=== PATIENT | female | born 1950 | race Caucasian/White ===

== ENCOUNTER 2016-10-12 10:07 | Emergency (ER) | payer OTHER ==
[~2016-10-12] VITALS: Ht 160 cm; Wt 72.6 kg
[~2016-10-12 10:07] MED LIST: AMANTADINE100 M1 PO; AMLODIPINE BESY10 M1 PO; ASPIRIN EC81 M1 PO; DULOXETINE HCL60 MG PO; FENOFIBRIC ACI135 M1 PO; FIBER CHOICE1.5 GM PO; FISH OIL 1,2001 EACH PO; FUROSEMIDE40 M1 PO; GABAPENTIN300 M2 PO; JANUVIA100 M1 PO; LISINOPRIL40 M1 PO; METFORMIN HCL1000 M1 PO; METOPROLOL TART25 M1 PO; PIOGLITAZONE HC30 M1 PO; POTASSIUM99 M1 PO; RANITIDINE HCL150 MG PO; REBIF 44 M44 MCG/0.5 SC; VITAMIN B-121000 MC3 PO; VITAMIN D2000 UNIT PO; ZETIA10 M1 PO
--- NOTE | 2016-10-12 10:31 | ED AMS/SEIZURE/WEAK/DIZZY ---
History of Present Illness General Chief Complaint: Dizziness Stated Complaint: SIB DIZZINESS,R LEG CRAMPS Source: patient, old records Exam Limitations: no limitations Vital Signs & Intake/Output Vital Signs & Intake/Output Vital Signs Date Time Temp Pulse Resp B/P B/P Pulse O2 O2 Flow FiO2 Mean Ox Delivery Rate 10/12 1302 96.3 63 18 171/85 99 Room Air ED Intake and Output 10/13 0000 10/12 1200 Intake Total 0 Output Total Balance 0 Intake, Oral 0 Patient 160 lb Weight Weight Reported by Patient Measurement Method Allergies Coded Allergies: atorvastatin (UNKNOWN 01/02/16) cortisone (UNKNOWN 01/02/16) rosuvastatin (UNKNOWN 01/02/16) scallops (UNKNOWN 01/02/16) Uncoded Allergies: "DO NOT USE LEFT ARM FOR ANY PROCEDURE" (03/23/11) Reconcile Medications Amantadine HCl (Amantadine) 100 MG CAPSULE 1 CAP PO BID STIMULANT (Reported) Amlodipine Besylate 10 MG TABLET 0.5 TAB PO DAILY BP (Reported) Aspirin (Ecotrin*) 81 MG TABLET.DR 1 TAB PO DAILY HEART/BLOOD (Reported) Reason to Stop at ADM: ANEMIA, POSSIBLE GI BLEED Cholecalciferol (Vitamin D3) (Vitamin D) 2,000 UNIT CAPSULE 1 CAP PO DAILY SUPPLEMENT (Reported) Cyanocobalamin (Vitamin B-12) 1,000 MCG TABLET 3 TAB PO DAILY SUPPLEMENT ( Reported) Duloxetine HCl 60 MG CAPSULE.DR 1 CAP PO DAILY DEPRESSION (Reported) Ezetimibe (Zetia) 10 MG TABLET 1 TAB PO DAILY CHOLESTEROL (Reported) Fenofibric Acid (Choline) (Fenofibric Acid) 135 MG CAPSULE.DR 1 CAP PO DAILY TRIGLYCERIDES/CHOLESTEROL (Reported) Fish Oil/Dha/Epa (Fish Oil 1,200 MG Fish Oil) 1 EACH CAPSULE 1 CAP PO BID SUPPLEMENT (Reported) Furosemide 40 MG TABLET 0.5 TAB PO DAILY DIURETIC (Reported) Gabapentin 300 MG CAPSULE 2 CAP PO BID NERVE PAIN (Reported) Interferon Beta-1a/Albumin (Rebif 44 Mcg/0.5 Ml Syringe) 44 MCG/0.5 ML SYRINGE 44 MCG SC Tuesday MS (Reported) Reason to Stop at ADM: USES Tue, NT NEEDED Inulin (Fiber Choice) (Unknown Strength) TAB.CHEW (Unknown Dose) PO DAILY SUPPLEMENT (Reported) Reason to Stop at ADM: NOT NEEDED Lisinopril 40 MG TABLET 1 TAB PO DAILY BP (Reported) Magnesium Oxide 400 MG TABLET 1 TAB PO BID MUSCLE CRAMPS Metformin HCl 1,000 MG TABLET 1 TAB PO BID DIABETES (Reported) Reason to Stop at ADM: ISS Metoprolol Tartrate 25 MG TABLET 1 TAB PO BID HEART/BP (Reported) Pioglitazone HCl 30 MG TABLET 1 TAB PO DAILY DIABETES (Reported) Reason to Stop at ADM: ISS Potassium Gluconate (Potassium) (Unknown Strength) TABLET 595 MG PO DAILY SUPPLEMENT (Reported) Reason to Stop at ADM: NOT NEEDED Ranitidine (Ranitidine HCl) 150 MG TABLET 1 TAB PO BID GI (Reported) Sitagliptin Phosphate (Januvia) 100 MG TABLET 1 TAB PO DAILY DIABETES ( Reported) Reason to Stop at ADM: ISS Triage Note: PT C/O DIZZINESS, BILATERAL LEG WEAKNESS, LEG CRAMPS ESPECIALLY IN CALFS SINCE TUESDAY. PT STATES THE CRAMPING ISN'T EVERYDAY. Triage Nurses Notes Reviewed? yes Onset: Abrupt Duration: day(s): (2) Timing: recent history Injury Environment: home Severity: mild, moderate No Modifying Factors: none Associated Symptoms: LEG CRAMPS AT NIGHT HPI: 66 year old female with history of HTN, high cholesterol, vein closures who presents to the ER for chief complaint of dizziness x 2 days and persistent leg cramping. The patient states she has had cramping over several months and can't get any answers from her doctors. They initially thought it was secondary to the stylet was on imaging should his area. She states that she drinks a lot of water. She tried tonic water but couldn't get it down. Patient also states that she has had dizziness for the past 2 days and feels lightheaded. Last year she was anemic and went to endoscopy colonoscopy and pelvis. She was determined not to have any acute GI source of bleeding and was transfused. Patient is frustrated because Past History Travel History Traveled to [place] past 21 day No Medical History Any Pertinent Medical History? 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 No Review of Systems Review of Systems Constitutional: Denies: chills, fever. EENTM: Reports: no symptoms. Respiratory: Denies: cough, short of breath. Cardiovascular: Denies: chest pain, palpitations. GI: Reports: no symptoms. Genitourinary: Reports: no symptoms. Musculoskeletal: Reports: see HPI, muscle pain. Skin: Reports: no symptoms. Neurological/Psychological: Reports: see HPI (DIZZINESS), anxiety. Hematologic/Endocrine: Denies: bruising, bleeding, polyuria, polydipsia. Immunologic/Allergic: Denies: splenectomy. All Other Systems: Reviewed and Negative Physical Exam Physical Exam General Appearance: well developed/nourished, alert, awake, comfortable Head: atraumatic, normal appearance Eyes: Bilateral: normal appearance, PERRL, EOMI. Ears, Nose, Throat: normal pharynx, hearing grossly normal Neck: normal inspection, supple, full range of motion Respiratory: normal breath sounds, chest non-tender, no respiratory distress Cardiovascular: regular rate/rhythm Peripheral Pulses: 2+ radial (R), 2+ radial (L) Gastrointestinal: soft, non-tender Extremities: normal range of motion, RIGHT LEG SWELLING, NONHEALING ANTERIOR PORTILLO ULCER Neurologic/Psych: no motor/sensory deficits, awake, alert, oriented x 3 Skin: intact, normal color, warm/dry Core Measures ACS in differential dx? No CVA/TIA Diagnosis: No Severe Sepsis Present: No Septic Shock Present: No Progress Differential Diagnosis: anemia, benign positional vertigo, CVA/stroke, dehydration, ELECTRO-DISTURBANCE, MEDICATION SIDE EFFECT, dvt, ANEMIA, DEHYDRATION, TOBACCO ABUSE Plan of Care: Laboratory Tests 10/12/16 1218: Urine Color YEL, Urine Clarity CLEAR, Urine pH 6.5, Ur Specific Morrill 1.015, Urine Protein NEG, Urine Ketones NEG, Urine Nitrite NEG, Urine Bilirubin NEG, Urine Urobilinogen 0.2, Ur Leukocyte Esterase NEG, Ur Microscopic EXAM NOT REQUIRED, Urine Hemoglobin NEG, Urine Glucose 250 H SODIUM 130. PATIETN INFORMED, WILL INCREASE ORAL FLUID INTAKE. U/S PENDING. 1 PM SMOKE CESSATION COUNSELLING X 3 MINUTES. WILL INCREASE ELECTROLYTE INTAKE AND FOLLOW UP WITH PCP IN OFFICE. PATIENT WILL FOLLOW UP WITH SHANNON ALANIZ REGARDING YOUR SODIUM IN A FEW WEEKS. (LAUREN BOYER,PRASHANT) Diagnostic Imaging: Viewed by Me: Ultrasound. Discussed w/RAD: Ultrasound. Radiology Impression: PATIENT: ANA RODRIGUES PRESENT AGE: 66 PATIENT ACCOUNT NO: [id number] : 48 LOCATION: [facility] ORDERING PHYSICIAN: PRASHANT AGUILAR MD SERVICE DATE: 10/12/16 EXAM TYPE: US - US- UNILATERAL VENOUS DOPPLER EXAMINATION: US TRIPLEX LOWER EXTREMITY, RIGHT CLINICAL INFORMATION: 66-year-old female with right leg pain and swelling. COMPARISON: None TECHNIQUE: Color-flow triplex imaging with spectral analysis and compression Doppler were performed on the lower extremity. FINDINGS: Respiratory variation, normal compression and augmented flow are noted throughout the left lower extremity. The visualized common femoral vein, superficial femoral vein, profunda femoral vein, popliteal vein and midcalf peroneal and posterior tibial venous segments show no evidence of deep venous thrombosis. There is no Ivey's cyst. IMPRESSION: Normal triplex scan without evidence of deep venous thrombosis involving the lower extremity. DICTATED BY: LOUANN MCQUENE DO DATE/TIME DICTATED:10/12/161230 [employer] BLASTING:[place] DATE/TIME TRANSCRIBED:10/12/161230 CONFIDENTIAL, DO NOT COPY WITHOUT APPROPRIATE AUTHORIZATION. <Electronically signed in Other Vendor System> SIGNED BY: LOUANN MCQUEEN DO 10/12/16 1235 Initial ED EKG: NSR Departure Departure Time of Disposition: 1254 Disposition: HOME OR SELF CARE Condition: Stable Clinical Impression Primary Impression: Dizziness Secondary Impressions: Anemia, Hyponatremia Referrals: JESSICA ALANIZ APRN (PCP/Family) Additional Instructions: INCREASE YOUR FLUID AND ELECTROLYTE INTAKE. FOLLOW UP WITH YOUR DOCTOR IN THE OFFICE. RETURN NEEDED. Departure Forms: Customer Survey General Discharge Information Prescriptions: Current Visit Scripts Magnesium Oxide 1 TAB PO BID #28 TAB Prescriptions: Current Visit Scripts Magnesium Oxide 1 TAB PO BID #28 TAB
[2016-10-12 10:52] LABS: ABSOLUTE BASOPHIL COUNT 0 /CUMM (0.0-0.2); ABSOLUTE EOSINOPHIL COUNT 0.2 /CUMM (0.0-0.7); ABSOLUTE LYMPH COUNT 1.2 /CUMM (1.2-3.4); ABSOLUTE MONOCYTE COUNT 0.4 /CUMM (0.10-0.60); BASOPHIL % 0.6 % (0.0-2.0); EOSINOPHIL % 3.6 % (0-5); GRANULOCYTE % 62.6 % (42.2-75.2); HEMATOCRIT 30.4 % (37-47); MEAN CORPUSCULAR HGB 27.7 PG (27.0-31.0); MEAN CORPUSCULAR HGB CONC 33.5 G/DL (33.0-37.0); MEAN CORPUSCULAR VOLUME 82.8 FL (81.0-99.0); MEAN PLATELET VOLUME 7.5 FL (7.4-10.4); PLATELET COUNT 357 /CUMM (130-400); RBC DISTRIBUTION WIDTH 16.5 % (11.5-14.5); RED BLOOD CELL CT 3.67 /CUMM (4.20-5.40); WHITE BLOOD CELL COUNT 4.9 /CUMM (4.8-10.8)
--- NOTE | 2016-10-12 12:35 | ULTRASOUND REPORT ---
EXAMINATION: US TRIPLEX LOWER EXTREMITY, RIGHT CLINICAL INFORMATION: 66-year-old female with right leg pain and swelling. COMPARISON: None TECHNIQUE: Color-flow triplex imaging with spectral analysis and compression Doppler were performed on the lower extremity. FINDINGS: Respiratory variation, normal compression and augmented flow are noted throughout the left lower extremity. The visualized common femoral vein, superficial femoral vein, profunda femoral vein, popliteal vein and midcalf peroneal and posterior tibial venous segments show no evidence of deep venous thrombosis. There is no Ivey's cyst. IMPRESSION: Normal triplex scan without evidence of deep venous thrombosis involving the lower extremity.
[2016-10-12] MEDS ORDERED: MAGNESIUM OXID400 M1 PO (13:00)
[2016-10-12 13:02] VITALS: BP 171/85
== END 2016-10-12 13:05 ==
LOC: ERH 10:07
PROVIDERS: Emergency Medicine
DX: R42 Dizziness and giddiness (principal); D64.9 Anemia, unspecified; E87.1 Hypo-osmolality and hyponatremia; F17.210 Nicotine dependence, cigarettes, uncomplicated
CPT/HCPCS: 81003; 93005; 93010

== ENCOUNTER 2017-05-20 19:43 | Observation (INO) | payer OTHER ==
[~2017-05-20] VITALS: Ht 162.6 cm; Wt 52.6 kg
[~2017-05-20 19:43] MED LIST changes: +ACYCLOVIR800 M1 PO; +ALBUTEROL2.5 MG/0.5 INH; +ALDACTONE50 M1; +CARVEDILOL25 M1; +COMPAZINE10 M1 PO; +HYDRALAZINE HCL10 M1; +LASIX20 M1 PO; +LOVENOX100 MG/1 M SC; +LOVENOX40 MG/0.1; +MAGNESIUM OXID400 M1 PO; +OXYCODONE HCL5 M1 PO; +POTASSIUM CHLO20 ME2 PO; +PREDNISONE10 M2 PO; +ROBITUSSIN COU237 M1; +SODIUM CHLORIDE1 G2 PO; +STOOL SOFTENER100 M3 PO; +TRILIPIX135 M1; +TRILIPIX135 M1 PO; +ZOFRAN ODT4 M1 SL
--- NOTE | 2017-05-20 20:07 | ED AMS/SEIZURE/WEAK/DIZZY ---
History of Present Illness General Chief Complaint: Dyspnea (COPD, CHF, Other) Stated Complaint: DIFF BREATHING, N/V Source: patient, FIANCE Exam Limitations: poor historian, WEAKNESS Vital Signs & Intake/Output Vital Signs & Intake/Output Vital Signs Date Time Temp Pulse Resp B/P B/P Pulse O2 O2 Flow FiO2 Mean Ox Delivery Rate 05/21 0021 97.5 94 18 153/70 100 Nasal 2.0L Cannula 05/20 2223 96.9 99 22 169/78 98 Nasal 2.0L Cannula 05/20 2106 99 Nasal 2.0L Cannula 05/20 2056 97.1 90 20 141/76 98 Nasal 2.0L Cannula 05/20 2013 Nasal 2.0L Cannula 05/20 1950 96.8 104 20 170/81 99 Nasal 2.0L Cannula ED Intake and Output 05/21 0000 05/20 1200 Intake Total Output Total Balance Patient 125 lb Weight Allergies Coded Allergies: atorvastatin (LEG CRAMPS 05/20/17) cortisone (SHOTS CAUSED BODY SWELLING AFTER 2 WEEKS 05/20/17) rosuvastatin (LEG CRAMPS 05/20/17) scallops (MOUTH SWELLS 05/20/17) Uncoded Allergies: "DO NOT USE LEFT ARM FOR ANY PROCEDURE" (03/23/11) Reconcile Medications Acetaminophen (Unknown Strength) TABLET (Unknown Dose) PO AD 1 HR PRIOR TO REBIF INJ (Reported) Albuterol Sulfate 2.5 MG/0.5 ML VIAL.NEB 3 ML INH Q6 PRN SHORTNESS OF BREATH (Reported) Amantadine HCl (Amantadine) 100 MG CAPSULE 1 CAP PO BID STIMULANT (Reported) Amlodipine Besylate 10 MG TABLET 0.5 TAB PO DAILY BP (Reported) Aspirin (Ecotrin*) 81 MG TABLET.DR 1 TAB PO DAILY HEART/BLOOD (Reported) Cholecalciferol (Vitamin D3) (Vitamin D) 2,000 UNIT TABLET 1 TAB PO DAILY SUPPLEMENT (Reported) Cyanocobalamin (Vitamin B-12) 1,000 MCG TABLET 3 TAB PO DAILY SUPPLEMENT ( Reported) Docusate Sodium (Stool Softener) 100 MG CAPSULE 1 CAP PO DAILY PRN CONSTIPATION . Duloxetine HCl 60 MG CAPSULE.DR 1 CAP PO DAILY DEPRESSION (Reported) Enoxaparin Sodium (Lovenox) 100 MG/ML SYRINGE 100 MG SC DAILY Rt IJ thrombosis (Reported) PLEASE FOLLOW UP WITH HEME/ONCOLOGIST ABOUT RESTARTING THIS MEDICATION Ezetimibe (Zetia) 10 MG TABLET 1 TAB PO DAILY CHOLESTEROL (Reported) Fenofibric Acid (Trilipix) 135 MG CAPSULE.DR 1 CAP PO DAILY CHOLESTEROL/ TRIGLYCERIDES (Reported) Furosemide 40 MG TABLET 1 TAB PO DAILY DIURETIC (Reported) Gabapentin 300 MG CAPSULE 1 CAP PO 4XDAILY NERVE PAIN (Reported) Guaifenesin/Dextromethorphan (Robitussin Cough-Chest Dm Liq) 100 MG-5 MG/5 ML LIQUID COUGH (Reported) Interferon Beta-1a/Albumin (Rebif 44 Mcg/0.5 Ml Syringe) 44 MCG/0.5 ML SYRINGE 44 MCG SC Tuesday MS (Reported) Reason to Stop at ADM: USES Tue, NT NEEDED Lisinopril 40 MG TABLET 1 TAB PO DAILY BP (Reported) Magnesium Oxide 400 MG TABLET 1 TAB PO BID SUPPLEMENT . Metformin HCl 1,000 MG TABLET 1 TAB PO BID DIABETES (Reported) Reason to Stop at ADM: ISS Metoprolol Tartrate 25 MG TABLET 1 TAB PO BID HEART/BP (Reported) [place]-3 Fatty Acids/Fish Oil (Fish Oil 1,200 MG Softgel) 360 MG-1,200 MG CAPSULE 1 CAP PO TID SUPPLEMENT (Reported) Ondansetron (Zofran Odt) 4 MG TAB.RAPDIS 1 TAB SL TID PRN NAUSEA Pioglitazone HCl 30 MG TABLET 1 TAB PO DAILY DIABETES (Reported) Reason to Stop at ADM: ISS Polycarbophil (Fiber) (Unknown Strength) TABLET (Unknown Dose) PO DAILY SUPPLEMENT (Reported) Potassium Chloride 20 MEQ TAB.ER.PRT 1 TAB PO BID LOW POTASSIUM Potassium Gluconate (Potassium) 595 MG (99 MG) TABLET 1 TAB PO DAILY SUPPLEMENT (Reported) Prochlorperazine Maleate (Compazine) 10 MG TABLET 1 TAB PO DAILY PRN NAUSEA ( Reported) Ranitidine (Ranitidine HCl) 150 MG TABLET 1 TAB PO BID GI (Reported) Sitagliptin Phosphate (Januvia) 100 MG TABLET 1 TAB PO DAILY DIABETES ( Reported) Reason to Stop at ADM: ISS Sodium Chloride 1 GRAM TABLET 1 TAB PO BID Hyponatremia (Reported) Triage Note: 66 YEAR OLD FEMALE FROM HOME C/O N/V. REPORTS DIFFICULTY BREATHING STARTING THIS AFTERNOON AND GENERALIZED WEAKNESS. PT ARRIVES TO ED ALERT AND ORIENTED X3, CLEAR SPEECH. REPORTS HISTORY OF LUNG CANCER AND DIABETES [facility] [address] LAU AT BEDSIDE FOR EVAL. Triage Nurses Notes Reviewed? yes HPI: Patient presents for evaluation of severe constant and worsening generalized weakness that began subacutely this afternoon sitting on the couch at home. The patient is currently being treated for lung cancer with chemotherapy and radiation (last treatments were earlier this week). He states she is also experiencing a chest heaviness and nausea and vomiting that began this afternoon. She states she has had prior similar episodes secondary to dehydration. She states she has maintained a normal PO2 intake consisting primarily of insurers and soup. She denies any associated fever, cold symptoms, diarrhea, dysuria or suspicious meals. She is experiencing a diffuse abdominal pain and tenderness as well. Past History Travel History Traveled to [place] past 21 day No Medical History Any Pertinent Medical History? 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 No Review of Systems Review of Systems Constitutional: Reports: weakness. EENTM: Reports: no symptoms. Respiratory: Reports: see HPI. Cardiovascular: Reports: see HPI. GI: Reports: see HPI. Genitourinary: Reports: no symptoms. Musculoskeletal: Reports: no symptoms. Skin: Reports: no symptoms. Neurological/Psychological: Reports: no symptoms. Hematologic/Endocrine: Reports: no symptoms. Immunologic/Allergic: Reports: no symptoms. All Other Systems: Reviewed and Negative Physical Exam Physical Exam General Appearance: SEE BELOW Comments: Gen.: Well-nourished, well-developed, no acute respiratory distress. Appears quite weak and tired. Head: Normocephalic, atraumatic. Eyes: Normal inspection bilaterally Ears: Normal inspection bilaterally Nose: Normal inspection Throat/mouth : Tacky mucosa Neck: Supple, full range of motion, no goiter Heart: Regular rate and rhythm, no murmurs rubs or gallops Lungs: Diffuse wheezes and rhonchi Chest: Nontender Back: Normal range of motion Abdomen: Soft, diffusely tender with brief voluntary guarding but no rebound, nondistended, normal bowel sounds Extremities: Normal range of motion grossly, equal radial pulses, no cyanosis clubbing or edema Neurologic: Cranial nerves grossly intact, speech is clear Skin: warm and dry Psychiatric: Calm, cooperative, no apparent delusions or hallucinations Core Measures ACS in differential dx? No CVA/TIA Diagnosis No Sepsis Present: No Sepsis Focused Exam Completed? No Progress Differential Diagnosis: anemia, dehydration, hypoglycemia, hypoxia, pneumonia, DEHYDRATION, copd/EMPHYSEMA Plan of Care: Orders Procedure Date/time Status Regular Diet 05/[address] in observation 05/21 0054 Active Patient Data 05/21 004 Active Misc Message 05/20 235 Active ED Holding Orders 05/20 235 Active Vital Signs 05/20 2351 Active Code Status 05/20 2351 Active Add-on Test (ER Only) 05/20 2218 Active CULTURE,STOOL 05/20 2200 Active C.DIFFICILE 05/20 2200 Active Telemetry/Receiving Worker 05/20 2006 Active TROPONIN LEVEL 05/20 2006 Complete MAGNESIUM 05/20 2006 Complete D-DIMER 05/20 2006 Complete CBC WITHOUT DIFFERENTIAL 05/20 2006 Complete B-TYPE NATRIURETIC PEP (BNP) 05/20 2006 Complete BASIC METABOLIC PANEL 05/20 2006 Complete EKG 05/20 1957 Active Current Medications Sig/Yolanda Start time Last Medication Dose Stop Time Status Admin Ondansetron HCl 4 MG ONCE ONE 05/21 0045 UNVr 05/21 (Zofran) 05/21 0046 0045 Sodium Chloride 1,000 ML ONCE ONE 05/205 AC 05/20 (Normal Saline 0.9%) 05/21 0354 2129 Laboratory Tests 05/20/17 2030: D-Dimer High Sensitivty 1113 H 05/20/17 2020: Anion Gap 8, Estimated GFR > 60, BUN/Creatinine Ratio 35.0 H, Glucose 278 H, Calcium 8.1 L, Magnesium 1.0 L, Troponin I 0.08, [id number] Pept 4760 H, CBC w Diff MAN DIFF ORDERED, RBC 3.81 L, MCV 88.8, MCH 29.9, RDW 18.9 H, MPV 8.5, Gran % 83.0 H, Lymphocytes % 4.3 L, Monocytes % 12.6 H, Eosinophils % 0.1, Basophils % 0, Absolute Granulocytes 16.4 H, Segmented Neutrophils 77 H , Band Neutrophils 8 H, Absolute Lymphocytes 0.8 L, Lymphocytes 4 L, Monocytes 8, Absolute Monocytes 2.5 H, Absolute Eosinophils 0, Absolute Basophils 0, Metamyelocytes 3 H, Nucleated RBCs 1 H, Platelet Estimate DECREASED, Polychromasia 1+, Anisocytosis 1+, Microcytic Cells 1+, PUBS MCHC 33.7 Microbiology 05/20 2218 STOOL: Clostridium difficile Toxin A & B - RECD 05/20 2218 STOOL: Stool Culture - RECD Diagnostic Imaging: Viewed by Me: Radiology Read. Discussed w/RAD: Radiology Read, CT Scan. Radiology Impression: PATIENT: ANA RODRIGUES PRESENT AGE: 66 PATIENT ACCOUNT NO: [id number] : 48 LOCATION: [facility] ORDERING PHYSICIAN: Otis Lau MD SERVICE DATE: 05/20/17-2217 EXAM TYPE: CAT - CTA CHEST-PULMONARY EMBOLISM EXAMINATION: CT PULMONARY EMBOLISM STUDY CLINICAL INFORMATION: Elevated d-dimer. Lung cancer. COMPARISON: 05/16/2017. TECHNIQUE: Contiguous helical images of the chest were obtained following the administration of IV contrast. Multiplanar reconstructions were performed. MIPS were obtained and reviewed. DLP: 185 mGy-cm. CONTRAST: 63 mL of Optiray 350 were administered without incident. FINDINGS: The heart is of normal size. There is no pericardial effusion. Again identified is a tracheal stent extending from just proximal to the jonelle into the left mainstem bronchus. The great vessels are unremarkable. Specifically, there is no pulmonary arterial filling defect. There is no CT evidence for pulmonary embolism. Again identified is soft tissue density about the jonelle and subcarinal region. This extends to the right hilar region with demonstrable loss of caliber to the right mainstem bronchus and proximal upper and lower lobe bronchi. There is increasing groundglass opacification identified within the superior segment right lower lobe and infrahilar location. There are no chest wall masses. Review of lung windows again demonstrates a right pleural effusion, slightly decreased in size from prior exam, considered to be small in quantity. A right pleural catheter is in unchanged position. There is stable appearance of an oblong nodular density within the right upper lobe on image 69/459 measuring approximately 8 x 3 mm. Also within the right upper lobe on image 81/459, there is a 3 mm nodule, unchanged from prior exam. Again identified are several subtle nodular densities bilaterally. There is stable mild bilateral bronchial wall thickening. Again identified are mild manifestations of emphysema. Limited evaluation of the upper abdomen demonstrates that the liver is of normal size and attenuation without focal lesions. Normal adrenal glands are identified. IMPRESSION: No CT evidence for a pulmonary embolism. Slight interval decrease in size of right pleural effusion with pleural catheter in place. Stable positioning of left mainstem bronchus stent. Persistent soft tissue prominence about the carinal and subcarinal regions with resultant narrowing to the caliber of the right mainstem bronchus and proximal upper and lower lobe bronchi. Increasing superior segment right lower lobe perihilar groundglass opacification and bronchial wall thickening. Mild manifestations of centrilobular emphysema. DICTATED BY: Diego Clayton MD DATE/TIME DICTATED:05/20/172326 BLUEPRINTER:KENIA DATE/ TIME TRANSCRIBED:05/20/172326 CONFIDENTIAL, DO NOT COPY WITHOUT APPROPRIATE AUTHORIZATION. <Electronically signed in Other Vendor System> SIGNED BY: Diego Clayton MD 05/20/17 8452 CXR Impression: PATIENT: ANA RODRIGUES PRESENT AGE: 66 PATIENT ACCOUNT NO: [id number] : 48 LOCATION: [facility] ORDERING PHYSICIAN: Otis Lau MD SERVICE DATE: 05/20/17 EXAM TYPE: RAD - XRY-PORTABLE CHEST XRAY EXAMINATION: XR PORTABLE CHEST CLINICAL INFORMATION: Shortness of breath and chest heaviness. History of lung carcinoma treated with chemotherapy and radiation. COMPARISON: CXR from 05/12/2017 TECHNIQUE: Portable frontal view of the chest was obtained. FINDINGS: There is a stent of the left mainstem bronchus. Pleural drainage catheter is present within the right hemithorax. A small right pleural effusion has increased compared to 05/12/2017. No pneumothorax. There is a right chest wall medication port with central catheter terminating in the region of junction of the superior vena cava and right atrium. No pulmonary edema or consolidation. Cardiac silhouette is normal in size. Mild tortuosity of the atherosclerotic aorta. No acute skeletal findings. IMPRESSION: 1. No radiographic evidence of pneumonia. 2. Small right pleural effusion has increased in size compared to 05/12/2017. DICTATED BY: Mendez Moreno MD DATE/TIME DICTATED:05/20/172054 BLUEPRINTER:KENIA DATE/TIME TRANSCRIBED:05/20/172054 CONFIDENTIAL, DO NOT COPY WITHOUT APPROPRIATE AUTHORIZATION. <Electronically signed in Other Vendor System> SIGNED BY: Mendez Moreno MD 05/20/172101 Initial ED EKG: NSR, rate (81), PAC Prior EKG: unchanged Comments: 05/20/2017 10:11:04 PM I went into off daily and on her test results and found her sitting at the edge of the bed unable to get back into the bed after using the bedside commode. She had an episode of diarrhea. She looked weak and unsteady. For moment I thought she might keeled over onto the floor. Moments after being placed in bed she needed to have another loose bowel movement. Given her overall debilitated state and multiple coincident medical problems I don't feel she is capable of returning home at this time. 05/20/2017 10:19:38 PM patient's case discussed with Dr. VALENZUELA who is requesting a CTA to rule out the possibility of pulmonary embolism. I have pointed out to her that the patient had a CT of the chest on May 16 that showed no PE. However Dr. Valenzuela he is concerned about the elevated d-dimer. Departure Departure Disposition: STILL A PATIENT Condition: Stable Clinical Impression Primary Impression: Hyponatremia Secondary Impressions: Diarrhea Qualifiers: Diarrhea type: unspecified type Qualified Code: R19.7 - Diarrhea, unspecified Elevated brain natriuretic peptide (BNP) level Elevated d-dimer Generalized weakness Leukocytosis Qualifiers: Leukocytosis type: other Qualified Code: D72.828 - Other elevated white blood cell count Lung cancer Qualifiers: Laterality: unspecified laterality Lung location: unspecified part of lung Qualified Code: C34.90 - Malignant neoplasm of unspecified part of unspecified bronchus or lung Recurrent right pleural effusion Referrals: Ese Duncan APRN (PCP/Family) Departure Forms: Customer Survey General Discharge Information Admission Note Documentation of Exam: Documentation of any treatments & extenuating circumstances including Concerns Regarding Discharge (functional status, medication knowledge or non-compliance, living conditions, etc.) that warrant an admission rather than observation: Observation Note Spoke With: Vamsi Rust MD Patient In: Non-ED OBS Care Area Rationale for Observation: My rational for observation is as follows: I feel this patient is far too weak and debilitated to return home. I think she would be at great risk of falling and would likely be so debilitated has to be indicated poor compliance with outpatient treatment. I will be highly likely that she would return in worse clinical condition. She is suffering a multitude of medical conditions including hyponatremia and leukocytosis and diarrhea. She has been receiving chemotherapy and radiation therapy for her lung cancer. I feel that she is in an overall very debilitated state and cannot be treated safely as an outpatient for her current medical problems and symptoms. I feel she would be incapable of compliance with outpatient treatment and would return in worse clinical condition. I suspect that she would be unable to fulfill activities of daily living as well. I feel she requires hospitalization for treatment with IV fluids and further monitoring of her elevated BNP, white blood cell count and d- dimer. Hematology oncology consultation should also be considered given her history of lung cancer. This patient is also having episodes of diarrhea and GI consultation should be considered as well. Stool culture results should be followed and treated accordingly. In addition given the patient's pleural effusion pulmonology consultation to be considered. Although I don't feel the patient's relatively small pleural effusion is impacting substantially on her overall clinical condition, drainage of the pleural effusion should also be considered. . Critical Care Note Critical Care Note Critical Care Time: 30-74 min
[2017-05-20 20:27] LABS: ABSOLUTE BASOPHIL COUNT 0 /CUMM (0.0-0.2); ABSOLUTE EOSINOPHIL COUNT 0 /CUMM (0.0-0.7); ABSOLUTE GRANULOCYTE CT 16.4 /CUMM (1.4-6.5); ABSOLUTE LYMPH COUNT 0.8 /CUMM (1.2-3.4); ABSOLUTE MONOCYTE COUNT 2.5 /CUMM (0.10-0.60); BASOPHIL % 0 % (0.0-2.0); EOSINOPHIL % 0.1 % (0-5); HEMATOCRIT 33.9 % (37-47); MEAN CORPUSCULAR HGB 29.9 PG (27.0-31.0); MEAN CORPUSCULAR HGB CONC 33.7 G/DL (33.0-37.0); MEAN CORPUSCULAR VOLUME 88.8 FL (81.0-99.0); MEAN PLATELET VOLUME 8.5 FL (7.4-10.4); RBC DISTRIBUTION WIDTH 18.9 % (11.5-14.5); RED BLOOD CELL CT 3.81 /CUMM (4.20-5.40)
[2017-05-20 20:28] LABS: PLATELET COUNT 127 /CUMM (130-400); WHITE BLOOD CELL COUNT 19.8 /CUMM (4.8-10.8)
--- NOTE | 2017-05-20 21:02 | RADIOLOGY REPORT ---
EXAMINATION: XR PORTABLE CHEST CLINICAL INFORMATION: Shortness of breath and chest heaviness. History of lung carcinoma treated with chemotherapy and radiation. COMPARISON: CXR from 05/12/2017 TECHNIQUE: Portable frontal view of the chest was obtained. FINDINGS: There is a stent of the left mainstem bronchus. Pleural drainage catheter is present within the right hemithorax. A small right pleural effusion has increased compared to 05/12/2017. No pneumothorax. There is a right chest wall medication port with central catheter terminating in the region of junction of the superior vena cava and right atrium. No pulmonary edema or consolidation. Cardiac silhouette is normal in size. Mild tortuosity of the atherosclerotic aorta. No acute skeletal findings. IMPRESSION: 1. No radiographic evidence of pneumonia. 2. Small right pleural effusion has increased in size compared to 05/12/2017.
[2017-05-20] MEDS ORDERED: METOPROLOL TART25 M1 PO (21:12)
[2017-05-20] MEDS ORDERED: LASIX40 M1 PO (21:13)
[2017-05-20] MEDS ORDERED: ZETIA10 M1 PO (21:14)
[2017-05-20] MEDS ORDERED: TRILIPIX135 M1 PO (21:15)
[2017-05-20] MEDS ORDERED: GABAPENTIN300 M2 PO (21:16)
[2017-05-20] MEDS ORDERED: ASPIRIN EC81 M1 PO (21:18)
[2017-05-20] MEDS ORDERED: VITAMIN D2000 UNI1 PO (21:19)
[2017-05-20] MEDS ORDERED: ACETAMINOPHEN500 M4 PO (21:19)
[2017-05-20] MEDS ORDERED: POTASSIUM99 M1 PO (21:20)
[2017-05-20] MEDS ORDERED: FISH OIL 1,2001 EAC4 PO (21:20)
[2017-05-20] MEDS ORDERED: FIBER625 MG PO (21:21)
[2017-05-20] MEDS ORDERED: VITAMIN B-121000 MC3 PO (21:23)
--- NOTE | 2017-05-20 23:39 | CT SCAN REPORT ---
EXAMINATION: CT PULMONARY EMBOLISM STUDY CLINICAL INFORMATION: Elevated d-dimer. Lung cancer. COMPARISON: 05/16/2017. TECHNIQUE: Contiguous helical images of the chest were obtained following the administration of IV contrast. Multiplanar reconstructions were performed. MIPS were obtained and reviewed. DLP: 185 mGy-cm. CONTRAST: 63 mL of Optiray 350 were administered without incident. FINDINGS: The heart is of normal size. There is no pericardial effusion. Again identified is a tracheal stent extending from just proximal to the jonelle into the left mainstem bronchus. The great vessels are unremarkable. Specifically, there is no pulmonary arterial filling defect. There is no CT evidence for pulmonary embolism. Again identified is soft tissue density about the jonelle and subcarinal region. This extends to the right hilar region with demonstrable loss of caliber to the right mainstem bronchus and proximal upper and lower lobe bronchi. There is increasing groundglass opacification identified within the superior segment right lower lobe and infrahilar location. There are no chest wall masses. Review of lung windows again demonstrates a right pleural effusion, slightly decreased in size from prior exam, considered to be small in quantity. A right pleural catheter is in unchanged position. There is stable appearance of an oblong nodular density within the right upper lobe on image 69/459 measuring approximately 8 x 3 mm. Also within the right upper lobe on image 81/459, there is a 3 mm nodule, unchanged from prior exam. Again identified are several subtle nodular densities bilaterally. There is stable mild bilateral bronchial wall thickening. Again identified are mild manifestations of emphysema. Limited evaluation of the upper abdomen demonstrates that the liver is of normal size and attenuation without focal lesions. Normal adrenal glands are identified. IMPRESSION: No CT evidence for a pulmonary embolism. Slight interval decrease in size of right pleural effusion with pleural catheter in place. Stable positioning of left mainstem bronchus stent. Persistent soft tissue prominence about the carinal and subcarinal regions with resultant narrowing to the caliber of the right mainstem bronchus and proximal upper and lower lobe bronchi. Increasing superior segment right lower lobe perihilar groundglass opacification and bronchial wall thickening. Mild manifestations of centrilobular emphysema.
--- NOTE | 2017-05-21 00:56 | History & Physical ---
EdisonDa Silva 05/21/17 0056: General Information and HPI MD Statement: I have seen and personally examined ANA RODRIGUES and documented this H&P. The patient is a 66 year old F who presented with a patient stated chief complaint of generalized weakness, nausea and shortness of breath.[]. Source of Information: patient, old records, EMS Exam Limitations: no limitations History of Present Illness: 66 YO F with a PMH significant for HTN, hyperlipidemia, DM, multiple sclerosis, HFpEF, stroke, breast cancer, SIADH, right IJ thrombus with SVC syndrome on Lovenox and recently diagnosed stage IV small cell lung carcinoma being treated with chemoradiotherapy with cisplatin and etoposide (last chemotherapy was on ) admitted for interactible nausea, generalized weakness and shortness of breath. Patient was admitted to [facility] last time 05/09/2017 for electrolyte imbalance and weakness. Patient reported that after she had been discharged from hospital 2 days back she was feeling weak and having nausea. She reported that she had a appointment with his doctor. Her doctor recommended her to get a CT scan. Patient reported that she was feeling so weak that she collapsed and was not able to get the CT scan. Patient with constant suffering from nausea. Patient has poor oral intake and she is not able to drink or eat anything to nourish herself. Patient reported that she has clinical nursing assistant that helps her to take care of the catheter in the right side of the chest that was placed for the pleural effusion. She also getting clinical nursing assistant for the physiotherapy.Due to holiday weekends she has not been able to get physical therapy at home. According to patient yesterday she felt extremely weak that she could not ambulate and today she decided to come to the hospital. Patient also reported to have progressively worsening exertional dyspnea. Patient denied chest pain, palpitation, chills, fever, lightheadedness, sick contact, abdominal pain, cough, short of breath at rest and dysuria. ED course: Vitals: Temperature 96.8, pulse 106, respiratory rate 20, blood pressure 170/81, oxygen saturation 99% on 2 L of oxygen Labs: WBC count 19.8, hemoglobin 11.4, hematocrit 33.9, platelet count 127, sodium 122, potassium 3.7, BUN 14, creatinine 0.4, BUN/creatinine ration 35.0, glucose 278, calcium 8.1, magnesium 1.0, proBNP 4760, d-dimer 1113. Considering patient's high pretest probability according to Well's score in system CTA chest was done to rule out pulmonary embolism. CTA chest was negative for PE. Allergies/Medications Allergies: Coded Allergies: atorvastatin (LEG CRAMPS 05/20/17) cortisone (SHOTS CAUSED BODY SWELLING AFTER 2 WEEKS 05/20/17) rosuvastatin (LEG CRAMPS 05/20/17) scallops (MOUTH SWELLS 05/20/17) Uncoded Allergies: "DO NOT USE LEFT ARM FOR ANY PROCEDURE" (03/23/11) Home Med list Acetaminophen (Unknown Strength) TABLET (Unknown Dose) PO AD 1 HR PRIOR TO REBIF INJ (Reported) Albuterol Sulfate 2.5 MG/0.5 ML VIAL.NEB 3 ML INH Q6 PRN SHORTNESS OF BREATH (Reported) Amantadine HCl (Amantadine) 100 MG CAPSULE 1 CAP PO BID STIMULANT (Reported) Amlodipine Besylate 10 MG TABLET 0.5 TAB PO DAILY BP (Reported) Aspirin (Ecotrin*) 81 MG TABLET.DR 1 TAB PO DAILY HEART/BLOOD (Reported) Carvedilol 25 MG TABLET BLOOD PRESSURE (Reported) Cholecalciferol (Vitamin D3) (Vitamin D) 2,000 UNIT TABLET 1 TAB PO DAILY SUPPLEMENT (Reported) Cyanocobalamin (Vitamin B-12) 1,000 MCG TABLET 3 TAB PO DAILY SUPPLEMENT ( Reported) Docusate Sodium (Stool Softener) 100 MG CAPSULE 1 CAP PO DAILY PRN CONSTIPATION . Duloxetine HCl 60 MG CAPSULE.DR 1 CAP PO DAILY DEPRESSION (Reported) Enoxaparin Sodium (Lovenox) 100 MG/ML SYRINGE 100 MG SC DAILY Rt IJ thrombosis (Reported) PLEASE FOLLOW UP WITH HEME/ONCOLOGIST ABOUT RESTARTING THIS MEDICATION Ezetimibe (Zetia) 10 MG TABLET 1 TAB PO DAILY CHOLESTEROL (Reported) Fenofibric Acid (Trilipix) 135 MG CAPSULE.DR 1 CAP PO DAILY CHOLESTEROL/ TRIGLYCERIDES (Reported) Furosemide 40 MG TABLET 1 TAB PO DAILY DIURETIC (Reported) Gabapentin 300 MG CAPSULE 1 CAP PO 4XDAILY NERVE PAIN (Reported) Guaifenesin/Dextromethorphan (Robitussin Cough-Chest Dm Liq) 100 MG-5 MG/5 ML LIQUID COUGH (Reported) Interferon Beta-1a/Albumin (Rebif 44 Mcg/0.5 Ml Syringe) 44 MCG/0.5 ML SYRINGE 44 MCG SC Tuesday MS (Reported) Reason to Stop at ADM: USES Tue, NT NEEDED Lisinopril 40 MG TABLET 1 TAB PO DAILY BP (Reported) Magnesium Oxide 400 MG TABLET 1 TAB PO BID SUPPLEMENT . Metformin HCl 1,000 MG TABLET 1 TAB PO BID DIABETES (Reported) Reason to Stop at ADM: ISS Metoprolol Tartrate 25 MG TABLET 1 TAB PO BID HEART/BP (Reported) [place]-3 Fatty Acids/Fish Oil (Fish Oil 1,200 MG Softgel) 360 MG-1,200 MG CAPSULE 1 CAP PO TID SUPPLEMENT (Reported) Ondansetron (Zofran Odt) 4 MG TAB.RAPDIS 1 TAB SL TID PRN NAUSEA Pioglitazone HCl 30 MG TABLET 1 TAB PO DAILY DIABETES (Reported) Reason to Stop at ADM: ISS Polycarbophil (Fiber) (Unknown Strength) TABLET (Unknown Dose) PO DAILY SUPPLEMENT (Reported) Potassium Chloride 20 MEQ TAB.ER.PRT 1 TAB PO BID LOW POTASSIUM Potassium Gluconate (Potassium) 595 MG (99 MG) TABLET 1 TAB PO DAILY SUPPLEMENT (Reported) Prednisone 10 MG TABLET 1 TAB PO TAPER STEROID TAPER . Prochlorperazine Maleate (Compazine) 10 MG TABLET 1 TAB PO DAILY PRN NAUSEA ( Reported) Ranitidine (Ranitidine HCl) 150 MG TABLET 1 TAB PO BID GI (Reported) Sitagliptin Phosphate (Januvia) 100 MG TABLET 1 TAB PO DAILY DIABETES ( Reported) Reason to Stop at ADM: ISS Sodium Chloride 1 GRAM TABLET 1 TAB PO BID Hyponatremia (Reported) Past History Travel History Traveled to [place] past 21 day No Medical History Neurological: CVA (w/ expressive aphashia), multiple sclerosis, NO PROCEDURES TO LEFT ARM DUE TO ULNAR NERVE EENT: NONE Cardiovascular: diastolic CHF, hypertension, hyperlipidemia Respiratory: NONE Gastrointestinal: GI BLEED Hepatic: NONE Renal: NONE Musculoskeletal: NONE (due to bulging disc) Psychiatric: NONE Endocrine: diabetes Blood Disorders: NONE Cancer(s): 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 EENTM: Reports: no symptoms. Cardiovascular: Reports: no symptoms. Respiratory: Reports: short of breath. GI: Reports: nausea. Genitourinary: Reports: no symptoms. Musculoskeletal: Reports: no symptoms. Neurological/Psychological: Reports: no symptoms. Exam & Diagnostic Data Last 24 Hrs of Vital Signs/I&O Vital Signs Date Time Temp Pulse Resp B/P B/P Pulse O2 O2 Flow FiO2 Mean Ox Delivery Rate 05/21 0021 97.5 94 18 153/70 100 Nasal 2.0L Cannula 05/20 2223 96.9 99 22 169/78 98 Nasal 2.0L Cannula 05/20 2106 99 Nasal 2.0L Cannula 05/20 2056 97.1 90 20 141/76 98 Nasal 2.0L Cannula 05/20 2013 Nasal 2.0L Cannula 05/20 1950 96.8 104 20 170/81 99 Nasal 2.0L Cannula Intake & Output 05/21 0800 05/21 0000 05/20 1600 Intake Total Output Total Balance Patient 125 lb Weight Physical Exam General Appearance Alert, Oriented X3, Cooperative, No Acute Distress Skin Temp/Moisture Exam: Warm/Dry Sepsis Skin Exam (color): Normal for Ethnicity HEENT Atraumatic, PERRLA, EOMI Neck Supple Cardiovascular Normal S1, Normal S2 Lungs Decreased breath sounds on right side compare to left. Abdomen Soft, No Tenderness Neurological Normal Speech, Normal Tone, Sensation Intact Extremities No Edema Last 24 Hrs of Labs/Scott: Laboratory Tests 05/20/17 2030: D-Dimer High Sensitivty 1113 H 05/20/17 2020: Anion Gap 8, Estimated GFR > 60, BUN/Creatinine Ratio 35.0 H, Glucose 278 H, Calcium 8.1 L, Magnesium 1.0 L, Troponin I 0.08, Ihq-J-Qzcbcttnnth Pept 4760 H, CBC w Diff MAN DIFF ORDERED, RBC 3.81 L, MCV 88.8, MCH 29.9, RDW 18.9 H, MPV 8.5, Gran % 83.0 H, Lymphocytes % 4.3 L, Monocytes % 12.6 H, Eosinophils % 0.1, Basophils % 0, Absolute Granulocytes 16.4 H, Segmented Neutrophils 77 H , Band Neutrophils 8 H, Absolute Lymphocytes 0.8 L, Lymphocytes 4 L, Monocytes 8, Absolute Monocytes 2.5 H, Absolute Eosinophils 0, Absolute Basophils 0, Metamyelocytes 3 H, Nucleated RBCs 1 H, Platelet Estimate DECREASED, Polychromasia 1+, Anisocytosis 1+, Microcytic Cells 1+, PUBS MCHC 33.7 Microbiology 05/20 2218 STOOL: Clostridium difficile Toxin A & B - RECD 05/20 2218 STOOL: Stool Culture - RECD Assessment/Plan Assessment: 66 YO F with a PMH significant for HTN, hyperlipidemia, DM, multiple sclerosis, HFpEF, stroke, breast cancer, SIADH, right IJ thrombus with SVC syndrome on Lovenox and recently diagnosed stage IV small cell lung carcinoma being treated with chemoradiotherapy with cisplatin and etoposide (last chemotherapy was on ) admitted for chemotherapy-induced interactible nausea, generalized weakness and shortness of breath. Consists patient history of lung cancer status post chemoradiotherapy and nausea and vomiting with generalized weakness we'll keep the patient observation to watch for electrolyte imbalance and dehydration. Generalized weakness: -Probably due to multifactorial including electrolyte imbalance poor nutritional status, cancer and deconditioning. -We will get the nutrition consult. -We will correct electrolyte imbalance. -We will encourage the patient to increase oral intake. -Physiotherapy Hyponatremia: -Possibly due to hypovolemic hyponatremia considering patient's history of poor oral intake and nausea vomiting. Also including the history of SIADH, could be the factor of hyponatremia. -Slow IV hydration with normal saline. -BP after every 4 hours. -If the patient hyponatremia is dominantly due to dehydration it was improved. If not and its dominantly due to SIADH will keep the patient on fluid restriction. Hypertension: -We will continue home medication. Nausea and vomiting: -We will give patient Zofran after checking the QTC. -Gentle IV hydration. History of congestive heart failure: -We will continue aspirin, lisinopril, carvedilol and amlodipine. History of diabetes: -We'll hold then oral anti-glycemic agents. -Accu-Cheks -We will keep the patient on NovoLog insulin according to sliding scale. History of depression: -We will continue home medication. DVT prophylaxis: Mechanical onlay considering thrombocytopenia. CODE STATUS: Full code As Ranked By This Provider Problem List: 1. Generalized weakness 2. Hyponatremia 3. Nausea and vomiting Core Measures/Misc (02/13) Acute Coronary Syndrome ACS Diagnosis: No Congestive Heart Failure Congestive Heart Failure Diagnosis No Cerebrovascular Accident CVA/TIA Diagnosis: No VTE (View Protocol) VTE Risk Factors Cancer/chemo/othr therapy No Mechanical VTE Prophylaxis d/t N/A MechProphylax Ordered No VTE Pharm Prophylaxis d/t NA PharmProphylax ordered Sepsis (View protocol) Sepsis Present: Yodit Simmons 05/21/17 0156: Resident Review Statement Resident Statement: examined this patient, discussed with international first officer, agreed with international first officer, discussed with family, reviewed EMR data (avail), discussed with nursing , discussed with case mgmt, reviewed images, amended to note Other Findings: 66-year-old woman, poor historian, with past medical history significant for hypertension, hyperlipidemia, diabetes, MS, HFpEF, stroke, breast cancer, SIADH, right IJ thrombosis with SVC syndrome on Lovenox and recently diagnosed with extensive small cell lung carcinoma on chemoradiotherapy (W/cisplatin and etoposide, last round of chemo was aroun ). Afterward, patient developed an intractable nausea and vomiting. She was admitted to [facility] from 05/09-05/17 for severe electrolyte derangements, and weakness. Over the stretcher 48 hours outside the hospital, patient continues to suffer from constant nausea, intractable vomiting and hives. At her baseline she has a very poor oral intake and poor nutritional status. Due to holiday weekends she has not been able to get physical therapy at home. According to patient yesterday she felt extremely weak that she could not ambulate and today she decided to come to the hospital. Patient denies any new change in her health. She denies any fever, shaking chills, abdominal pain, diarrhea, cough, shortness of breath, chest pain, palpitation. Of note, patient has one episode of loose bowel movements in the emergency room. Review of system: Complains of severe generalized weakness; vital signs are stable; physical exam: General appearance: Cachectic and frail, moderate distress, persistent hive; HEET: Mucous membranes are dry, sclera pale; heart: S1, S2, no murmur; lung: Clear; site of the Pleurx catheter is appropriately dressed, no tenderness to touch, abdominis soft, no extremity swelling or skin change. Pertinent data Wells score: High D-dimer 1113 WBC 19.8; platelets 128, BUN 14, creatinine 0.4 BUN/creatinine ratio 35, magnesium 1 C diff toxin is pending CTA of the chest: No evidence of pulmonary embolism; Slight interval decrease in size of right pleural effusion with pleural catheter in place. List of active problems # leukocytosis without source of infection: Mostly due to steroids without any obvious source of infection. Watch of antibiotics. Follow micro results. # generalized weakness was possibly multifactorial (electrolyte derangements, poor nutritional status, cancer, deconditioning and muscle loss) # hyponatremia (SIADH and hypovolemic hyponatremia): Continue IV hydration with normal saline 1 back and repeat BEP in am; if the main culprit is SIADH IV hydration will worsen the situation, but if the acute insult is due to dehydration and hyponatremia will improve. # chronic conditions : Hypertension, hyperlipidemia, MS, heart failure with preserved ejection fraction, DM, steroid dependence Plan * Admit to general medical floor as an observation patient * EKG: check for QT prolongation * If QT is normal start IV Zofran Q 4 as needed * Replete magnesium * Replete potassium * Check phosphates * Continue IV hydration D5 and normal saline 75 mL per hour 1 back * Continue prednisone 50 mg by mouth daily (per taper instruction from discharge summary) * Continue lisinopril 40 mg by mouth daily * Continue carvedilol 25 mg by mouth daily * Continue amlodipine 5 mg daily * Insulin NovoLog sliding scale 3 times a day before meals; fingersticks 3 times a day before meals and at bedtime * TRC/ duoNeb every 4 hours as needed * Hold Lasix 20 mg by mouth daily * Reconsile med list with Lovenox 40 units subcutaneous daily Proper pain past day Full code Vamsi Rust 05/21/17 0524: Attending MD Review Statement Attending Statement Attending MD Statement: examined this patient, discuss w/resident/PA/SQUEAK R[employer]LE [employer] LEAK REPAIRER, agreed w/resident/PA/SQUE[employer] LEAK REPAIRER, reviewed EMR data (avail), reviewed images, amended to note Attending Assessment/Plan: CC : Nausea vomiting PMH: Ex smoker, MS on interferon, CVA, DM, HTN, stage IV small cell cancer, recurrent right-sided pleural effusion S/P Pleurx cath Patient was admitted in hospital from May 08 to , initially for persistent nausea vomiting, later on found to have mild respiratory discomfort, chest pain and recurrence of pleural effusion. Patient's nausea vomiting was considered secondary to recent chemotherapy that she received on May 03. Once symptomatically better patient was discharged on tapering dose of steroid, continued antiemetics for nausea, home health aides and nursing and to be followed up with oncologist at [facility]. After discharge patient persistently felt very lethargic, tired, unable to even stand, persistent nausea vomiting, mostly dry heaving, shortness of breath so she came back to ER. 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 Her pleural effusion was last drained on May 17 while in hospital. Her previous chemotherapy was on May 03. Patient is poor historian, forgetful, does not provide any exact details. Most likely her takes care of her and he is not even aware of her home medications. Vitals: Afebrile, mildly tachycardic on arrival improved to 90s, RR 20, blood pressure 1 4176, saturating well on 2 L nasal cannula On exam: A O 3, forgetful, cooperative, cachectic, continuously dry heaving, no acute distress, neck supple, JVD normal, no lymphadenopathy, mucosa dry, no focal neurological deficit, no dependent edema, no obvious skin rashes or inflammation, port on right side, Pleurx catheter dressed CVS: S1-S2, RRR. RS: Air entry decreased on the right base. Abdomen: Soft, NT, ND, bowel sounds present. Labs: WBC 19.8, hemoglobin 11.4, hematocrit 30 3. iron, platelet 127, neutrophils 83%, bands 8, sodium 122, potassium 3.7, chloride 93, bicarbonate 21 , BUN 14, creatinine 0.4, glucose 278, calcium 8.1, proBNP 4760, d-dimer 1113, CXR: 1. No radiographic evidence of pneumonia. 2. Small right pleural effusion has increased in size compared to 05/12/2017. CTA chest: No CT evidence for a pulmonary embolism. Slight interval decrease in size of right pleural effusion with pleural catheter in place. Stable positioning of left mainstem bronchus stent. Persistent soft tissue prominence about the carinal and subcarinal regions with resultant narrowing to the caliber of the right mainstem bronchus and proximal upper and lower lobe bronchi. Increasing superior segment right lower lobe perihilar groundglass opacification and bronchial wall thickening. Mild manifestations of centrilobular emphysema. Assessment and plan 66-year-old female with past medical history significant for Ex smoker, MS on interferon, CVA, DM, HTN, stage IV small cell cancer, recurrent right-sided pleural effusion S/P Pleurx cath, presented in ER for persistent nausea, vomiting, feeling weak and lethargic, unable to walk because of tiredness, shortness of breath, had one episode of diarrhea in ER. Patient was admitted in hospital from May 08 to , initially for persistent nausea vomiting, later on found to have mild respiratory discomfort, chest pain and recurrence of pleural effusion and pancytopenia. Patient's nausea vomiting was considered secondary to recent chemotherapy that she received on May 03. Once symptomatically better patient was discharged on tapering dose of prednisone, continued antiemetics for nausea. Symptoms again recurred after discharge this patient came back again. I think nausea vomiting persistently secondary to her chemotherapy, cancer cachexia. Patient is malnourished. Patient has significant increase in white cell count as compared to 4 days back, at this point no obvious source of infection identified, no fever. Patient was discharged on prednisone which could be causing leukocytosis, patient received Neulasta prior to previous hospitalization or it could be reactive but at the same time there is increased the superior segmental right lobe the hilar groundglass opacification, if persistent leukocytosis or fever spike or worsening cough, consider antibiotics. For now we will hold off antibiotics. With recurrent hospitalization healthcare associated pneumonia is also possibility and with recurrent vomiting aspiration is another possibility. Needs close follow-up. Patient is very forgetful, does not remember facts and details, confabulates. Pleurx cath drained 600 mL on May 17. Chronic hyponatremia, appears to be worsening probably secondary to dehydration along with super added dehydration, we'll continue IV fluids gently for now, watch her sodium closely. + Persistent nausea vomiting + Physical deconditioning + Hyponatremia + Elevated d-dimer, history of cancer, not on anticoagulation : CTA obtain PE ruled out + Recurrent pleural effusion, currently has Pleurx catheter, drain twice weekly : Last done on May 17 + significant leukocytosis with bandemia : Likely reactive + History of stage IV small cell lung cancer, currently under chemotherapy and radiation - Place in observation on Gen. medicine - Continue gentle hydration - Watch sodium Q6 hourly, avoid abrupt drop or increase by 8 mEq 2 a 24-hour - Nutrition consult - follow up on LFT - When necessary Zofran, Tigan, continue tapering dose of prednisone for nausea and vomiting - Inform oncologist about patient being here - Continue thiamine 100 mg by mouth daily - Continue rest of her home medications - DVT prophylaxis with Alps : Thrombocytopenia
[2017-05-21 03:26] VITALS: BP 144/92
--- NOTE | 2017-05-21 12:51 | PN- Att Addend ---
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 Patient was recently admitted to the floor for persistent nausea and vomiting with some respiratory discomfort chest pain and recurrence of pleural effusion. The symptoms were attributed to her chemotherapy and cancer. Patient is again admitted with persistent nausea and vomiting. Lab work also showed leukocytosis but she has been discharged with prednisone and no other obvious source of infection has been located. Will consider starting her on antibiotics if she has persistent leukocytosis, fever or cough. She was seen this morning while sitting in the chair and taking her breakfast, reported that she she feels fine today with no nausea or vomiting and has been able to finish off of her breakfast. CT chest has been done to rule out for pulmonary embolism and is a slight decrease in the size of her right pleural effusion which is being drained twice weekly. Please let her oncologist know about her admission. Will watch her sodium closely which is gradually worsening with gentle IV fluids. Will consider nephrology consult if she is to stay her and get admitted.
[2017-05-21 14:51] VITALS: BP 130/70
[2017-05-21 22:21] VITALS: BP 118/70
[2017-05-22 06:19] VITALS: BP 126/76
[2017-05-22 08:15] LABS: ABSOLUTE BASOPHIL COUNT 0 /CUMM (0.0-0.2); ABSOLUTE EOSINOPHIL COUNT 0 /CUMM (0.0-0.7); ABSOLUTE LYMPH COUNT 0.7 /CUMM (1.2-3.4); EOSINOPHIL % 0.1 % (0-5)
[2017-05-22 08:32] LABS: ABSOLUTE GRANULOCYTE CT 15.8 /CUMM (1.4-6.5); ABSOLUTE MONOCYTE COUNT 0.7 /CUMM (0.10-0.60); BASOPHIL % 0.2 % (0.0-2.0); MEAN CORPUSCULAR HGB 30.1 PG (27.0-31.0); MEAN CORPUSCULAR HGB CONC 33.4 G/DL (33.0-37.0); MEAN CORPUSCULAR VOLUME 90.1 FL (81.0-99.0); MEAN PLATELET VOLUME 7.7 FL (7.4-10.4); PLATELET COUNT 152 /CUMM (130-400); RBC DISTRIBUTION WIDTH 18.5 % (11.5-14.5); RED BLOOD CELL CT 2.91 /CUMM (4.20-5.40)
[2017-05-22 08:38] LABS: HEMATOCRIT 26.2 % (37-47)
[2017-05-22 10:22] LABS: WHITE BLOOD CELL COUNT 17.2 /CUMM (4.8-10.8)
--- NOTE | 2017-05-22 10:27 | Patient Discharge Instructions ---
Discharge Instructions General Discharge Information You were seen/treated for: Chemo-induced Nausea/Vomiting Special Instructions: - Please follow up with your primary care physician within 1-2 week of discharge. Inform your primary care physician of this admission to [facility]. - Continue your current medications per discharge instructions. - Please watch for these problems: Fever, Chills, Nausea, Vomiting, Shortness of Breath, Productive Cough, Chest Pain/Discomfort, Abdominal Pain, Active Bleeding or Bloody urine/stool. Diet Continue normal diet: Yes Activity Full Activity/No Limits: Yes Acute Coronary Syndrome Inclusion Criteria At DC or during hospital stay patient has or had the following: ACS DIAGNOSIS No Discharge Core Measures Meds if any: Prescribed or Continued at Discharge Meds if any: NOT Prescribed or Continued at Discharge Congestive Heart Failure Inclusion Criteria At DC or during hospital stay patient has or had the following: CHF DIAGNOSIS No Discharge Core Measures Meds if any: Prescribed or Continued at Discharge Meds if any: NOT Prescribed or Continued at Discharge Cerebrovascular accident Inclusion Criteria At DC or during hospital stay patient has or had the following: CVA/TIA Diagnosis No Discharge Core Measures Meds if any: Prescribed or Continued at Discharge Meds if any: NOT Prescribed or Continued at Discharge Venous thromboembolism Inclusion Criteria VTE Diagnosis No VTE Type NONE VTE Confirmed by (Test) NONE Discharge Core Measures - Per Current guidelines, there needs to be overlap - treatment for the first 5 days of Warfarin therapy. - If discharged on Warfarin prior to 5 days of - overlap therapy, the patient will need to be - assessed for post discharge needs including - *Post discharge parental anticoagulation - *Warfarin and/or parental anticoagulation education - *Follow up date to check INR post discharge At least 5 days overlap therapy as Inpatient No Meds if any: Prescribed or Continued at Discharge Note: Overlap Therapy is Warfarin and Anticoagulant Meds if any: NOT Prescribed or Continued at Discharge
[2017-05-22 10:30] VITALS: BP 126/76
--- NOTE | 2017-05-22 11:56 | PN- Att Addend ---
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 Patient was recently admitted to the floor for persistent nausea and vomiting with some respiratory discomfort chest pain and recurrence of pleural effusion. The symptoms were attributed to her chemotherapy and cancer. Patient was again admitted with persistent nausea and vomiting. Lab work also showed leukocytosis but she has been discharged with prednisone and no other obvious source of infection has been located, so was attributed to the use of steroids. Patient was kept off of antibiotics as the patient did not had any fever during the hospital stay and her white count trended downward. CT chest has been done to rule out for pulmonary embolism and is a slight decrease in the size of her right pleural effusion which is being drained twice weekly. Patient was seen and examined this morning while she was sitting in her chair. Reported that she is feeling fine with no nausea or vomiting, had her breakfast. She reported that she never felt so better in the last couple of weeks as she felt better today. Given the patient is stable and admitted for observation, no more nausea or vomiting, no fever, white count coming down, will discharge the patient with follow-up with her oncologist. Patient is due for her drainage of the Pleurx catheter tomorrow at home by the visiting nurse. Plan discussed with the patient and with the resident who agreed.
== END 2017-05-22 13:44 ==
LOC: ERH 19:43 → ERHI 05-21 00:54 → 2NA 05-21 00:54 → ENRESERV 05-21 01:52 → 2NA 05-21 02:31 → ENPENDDIS 05-22 10:47 → ENTRNSPT 05-22 13:25 → EDTRNSPT 05-22 13:33 → EDTRNSPTSTS 05-22 13:33 → 2NA 05-22 13:44 → CMPTRNSPT 05-22 14:03
PROVIDERS: Emergency Medicine
DX: R06.02 Shortness of breath (principal); E78.5 Hyperlipidemia, unspecified; E11.9 Type 2 diabetes mellitus without complications; G35 Multiple sclerosis; E87.1 Hypo-osmolality and hyponatremia; I11.0 Hypertensive heart disease with heart failure; I50.42 Chronic combined systolic (congestive) and diastolic (congestive) heart failure; F32.9 Major depressive disorder, single episode, unspecified; J90 Pleural effusion, not elsewhere classified; R11.2 Nausea with vomiting, unspecified; R53.1 Weakness; Z79.82 Long term (current) use of aspirin; D72.829 Elevated white blood cell count, unspecified; I69.320 Aphasia following cerebral infarction; Z85.3 Personal history of malignant neoplasm of breast; C34.90 Malignant neoplasm of unspecified part of unspecified bronchus or lung; Z79.01 Long term (current) use of anticoagulants
CPT/HCPCS: 1263; 36415; 82436; 87045; 93005; 93010; 96374; 96375; 97116-GP; 97161-GP; 99291; G0378; G8978-GP; G8979-GP; J2405

== ENCOUNTER 2017-10-12 05:35 | Emergency (ER) | payer OTHER ==
[~2017-10-12] VITALS: Ht 160 cm; Wt 51.7 kg
[~2017-10-12 05:35] MED LIST changes: +ACETAMINOPHEN500 M4 PO; +FIBER625 MG PO; +FISH OIL 1,2001 EAC4 PO; +LASIX40 M1 PO; +VITAMIN D2000 UNI1 PO
--- NOTE | 2017-10-12 05:46 | ED DYSPNEA/ASTHMA COMPLAINT ---
See Addendum History of Present Illness General Chief Complaint: Dyspnea (COPD, CHF, Other) Stated Complaint: BIBA SOB Source: patient, family, old records, EMS Exam Limitations: no limitations Vital Signs & Intake/Output Vital Signs & Intake/Output Vital Signs Date Time Temp Pulse Resp B/P B/P Pulse O2 O2 Flow FiO2 Mean Ox Delivery Rate 10/12 1219 145 20 144/88 99 Nasal 2.0L Cannula 10/12 1156 98.2 10/12 0925 98 Nasal 2.0L Cannula 10/12 0918 98.2 103 20 140/98 98 Nasal 2.0L Cannula 10/12 0556 98 Nasal 2.0L Cannula 10/12 0544 99 Nasal 2.0L Cannula 10/12 0539 96.1 131 18 161/79 97 Nasal 2.0L Cannula Allergies Coded Allergies: atorvastatin (LEG CRAMPS 05/20/17) cortisone (SHOTS CAUSED BODY SWELLING AFTER 2 WEEKS 05/20/17) rosuvastatin (LEG CRAMPS 05/20/17) scallops (MOUTH SWELLS 05/20/17) Uncoded Allergies: "DO NOT USE LEFT ARM FOR ANY PROCEDURE" (03/23/11) Triage Nurses Notes Reviewed? yes HPI: Patient presents with difficulty breathing because she lost power and ran out of oxygen. Patient also cannot use her nebulizer. Patient has a history of O2 dependent COPD as well as lung cancer. She finished radiation therapy for weeks ago and is not on chemotherapy. While the that stepped out of the room the patient also mentioned that she has a pounding headache ever since she fell last night. Patient states that her had accidentally cut himself out of the house and they did not have power so the house was dark and she was trying to make her way to the front door to open for him when she lost her balance and fell backwards and hit her head on a table. Patient is unsure if she lost consciousness but states that if she did it was only for second or 2. Patient states that she's had a pounding headache since then. She rates the pain at 6 out of 10. There is no radiation. There are no aggravating or mitigating factors. Patient is nauseous but states that she is chronically nauseous after the radiation treatment for her lung cancer. (Sigifredo BOYERDelfin) Reconcile Medications Alprazolam (Xanax) 0.5 MG TABLET 1 TAB PO QPM SLEEP (Reported) Docusate Sodium (Stool Softener) 100 MG CAPSULE 1 CAP PO DAILY PRN CONSTIPATION . Duloxetine HCl 60 MG CAPSULE.DR 1 CAP PO DAILY DEPRESSION (Reported) Famotidine 20 MG TABLET 1 TAB PO BID GI (Reported) Gabapentin 300 MG CAPSULE 1 CAP PO 4XDAILY NERVE PAIN (Reported) Meloxicam 7.5 MG TABLET 1 TAB PO DAILY PAIN (Reported) Ondansetron (Zofran Odt) 4 MG TAB.RAPDIS 1 TAB SL TID PRN NAUSEA (Otis Aguirre DO) Past History Travel History Traveled to [place] past 21 day No Medical History Any Pertinent Medical History? 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 No (Delfin Mei MD) Review of Systems Review of Systems Constitutional: Reports: no symptoms. EENTM: Reports: no symptoms. Respiratory: Reports: see HPI, short of breath. Cardiovascular: Reports: no symptoms. GI: Reports: see HPI, nausea. Genitourinary: Reports: no symptoms. Musculoskeletal: Reports: no symptoms. Skin: Reports: no symptoms. Neurological/Psychological: Reports: see HPI, headache. Hematologic/Endocrine: Reports: no symptoms. Immunologic/Allergic: Reports: no symptoms. All Other Systems: Reviewed and Negative (Delfin Mei MD) Physical Exam Physical Exam General Appearance: well developed/nourished, alert, awake, anxious, mild distress Head: atraumatic, normal appearance Eyes: Bilateral: PERRL, EOMI. Ears, Nose, Throat: normal pharynx, normal ENT inspection Neck: normal inspection, supple, full range of motion Respiratory: no respiratory distress, rhonchi Cardiovascular: regular rate/rhythm, normal peripheral pulses Gastrointestinal: normal bowel sounds, soft, non-tender, no organomegaly Extremities: normal inspection, normal capillary refill, normal range of motion, no edema Neurologic/Psych: no motor/sensory deficits, awake, alert, oriented x 3, normal mood/affect Skin: intact, normal color, warm/dry Core Measures ACS in differential dx? No CVA/TIA Diagnosis No Sepsis Present: No Sepsis Focused Exam Completed? No (Sigifredo BOYER,Delfin Lyons) Progress Differential Diagnosis: bronchitis, COPD, HEAD INJURY, ICH Plan of Care: Orders Procedure Date/time Status Heart Healthy Diet 10/12 B Active EKG 10/12 1321 Active COMPREHENSIVE METABOLIC PANEL 10/12 1215 Complete CBC WITHOUT DIFFERENTIAL 10/12 1215 Complete EKG 10/12 0542 Active Current Medications Sig/Yolanda Start time Last Medication Dose Stop Time Status Admin Lorazepam 0.5 MG BID 10/12 0900 UNVr 10/12 (Ativan) 10/19 0859 0918 Gabapentin 300 MG Q6 10/12 0600 UNVr 10/12 (Neurontin) 1157 Ondansetron HCl 4 MG Q6P PRN 10/12 0600 UNVr (Zofran) Albuterol Sulfate 3 ML Q4H PRN 10/12 0545 AC 10/12 (Proventil) 0924 Laboratory Tests 10/12/17 1233: Anion Gap 8, Estimated GFR > 60, BUN/Creatinine Ratio 22.9, Glucose 175 H, Calcium 8.3 L, Total Bilirubin 0.5, AST 16, ALT 22, Alkaline Phosphatase 65, Total Protein 5.6 L, Albumin 2.6 L, Globulin 3.0, Albumin/Globulin Ratio 0.9 L, CBC w Diff NO MAN DIFF REQ, RBC 3.02 L, MCV 88.7, MCH 29.9, MCHC 33.7, RDW 18.9 H, MPV 6.8 L, Gran % 80.2 H, Lymphocytes % 10.1 L, Monocytes % 9.1, Eosinophils % 0.6, Basophils % 0, Absolute Granulocytes 5.6, Absolute Lymphocytes 0.7 L, Absolute Monocytes 0.6, Absolute Eosinophils 0, Absolute Basophils 0 Diagnostic Imaging: Viewed by Me: CT Scan. Discussed w/RAD: CT Scan. Radiology Impression: PATIENT: ANA RODRIGUES PRESENT AGE: 67 PATIENT ACCOUNT NO: [id number] : 48 LOCATION: [facility] ORDERING PHYSICIAN: Delfin Mei MD SERVICE DATE: 10/12/17 EXAM TYPE: CAT - CT HEAD WO IV CONTRAST EXAMINATION: CT HEAD WITHOUT CONTRAST CLINICAL INFORMATION: Fall. Injury. Pain. COMPARISON: March 18, 2017. TECHNIQUE: Contiguous helical images of the brain were obtained without IV contrast. Multiplanar reconstructions were performed. DLP: 645 mGy-cm. FINDINGS: There are no pathologic extra-axial fluid collections. The lateral, third, fourth ventricles are prominent, though stable, age-appropriate and concordant with the appearance of the sulci. There is no evidence for acute intraparenchymal hemorrhage or infarct. There is periventricular low-attenuation indicative of small vessel disease. There is neither mass nor mass effect. There is no shift of midline structures. The paranasal sinuses and mastoid air cells are clear. There are no osseous lesions. IMPRESSION: No evidence for acute intracranial injury. Stable age-appropriate appearance of the brain. DICTATED BY: Diego Clayton MD DATE/TIME DICTATED:10/12/17646 TASSEL CLIPPER:KENIA DATE/TIME TRANSCRIBED:10/12/17646 CONFIDENTIAL, DO NOT COPY WITHOUT APPROPRIATE AUTHORIZATION. <Electronically signed in Other Vendor System> SIGNED BY: Diego Clayton MD 10/12/17 0654 Initial ED EKG: S TACH, PACS, NSSTT CHANGES Prior EKG: unchanged Rhythm Strip: sinus tachycardia Hand-Off Endorsed To: Otis Aguirre DO Endorsed Time: 0700 Pending: other (Sigifredo BOYER,Dlefin Lyons) Departure Departure Disposition: HOME OR SELF CARE Condition: Stable Clinical Impression Primary Impression: COPD (chronic obstructive pulmonary disease) Referrals: Ese Duncan APRN (PCP/Family) Additional Instructions: RETURN FOR ANY CONCERNS Departure Forms: Customer Survey General Discharge Information (Delfin Mei MD) Departure Comments 10/12/17 1:50 PM 67-year-old female with metastatic lung cancer. She is currently in hospice. She presented to the emergency department for no power at home. Arrangements have been made for her. I had a discussion with the family, her . Confirm the patient is hospice. She was found to be in atrial fibrillation. They're aware of her prognosis. She was transferred to this facility for comfort care and hospice therapy. (Timothy BENNETT,Otis Herrera) Critical Care Note Critical Care Note Critical Care Time: non-applicable (Sigifredo BOYER,Delfin Lyons)
--- NOTE | 2017-10-12 06:54 | CT SCAN REPORT ---
EXAMINATION: CT HEAD WITHOUT CONTRAST CLINICAL INFORMATION: Fall. Injury. Pain. COMPARISON: March 18, 2017. TECHNIQUE: Contiguous helical images of the brain were obtained without IV contrast. Multiplanar reconstructions were performed. DLP: 645 mGy-cm. FINDINGS: There are no pathologic extra-axial fluid collections. The lateral, third, fourth ventricles are prominent, though stable, age-appropriate and concordant with the appearance of the sulci. There is no evidence for acute intraparenchymal hemorrhage or infarct. There is periventricular low-attenuation indicative of small vessel disease. There is neither mass nor mass effect. There is no shift of midline structures. The paranasal sinuses and mastoid air cells are clear. There are no osseous lesions. IMPRESSION: No evidence for acute intracranial injury. Stable age-appropriate appearance of the brain.
[2017-10-12] MEDS ORDERED: MELOXICAM7.5 M1 PO (08:06)
[2017-10-12] MEDS ORDERED: XANAX0.5 M1 PO (08:07)
[2017-10-12] MEDS ORDERED: FAMOTIDINE20 M1 PO (08:21)
[2017-10-12 12:40] LABS: ABSOLUTE BASOPHIL COUNT 0 /CUMM (0.0-0.2); ABSOLUTE EOSINOPHIL COUNT 0 /CUMM (0.0-0.7); ABSOLUTE GRANULOCYTE CT 5.6 /CUMM (1.4-6.5); ABSOLUTE LYMPH COUNT 0.7 /CUMM (1.2-3.4); ABSOLUTE MONOCYTE COUNT 0.6 /CUMM (0.10-0.60); BASOPHIL % 0 % (0.0-2.0); EOSINOPHIL % 0.6 % (0-5); GRANULOCYTE % 80.2 % (42.2-75.2); HEMATOCRIT 26.8 % (37-47); MEAN CORPUSCULAR HGB 29.9 PG (27.0-31.0); MEAN CORPUSCULAR HGB CONC 33.7 G/DL (33.0-37.0); MEAN CORPUSCULAR VOLUME 88.7 FL (81.0-99.0); MEAN PLATELET VOLUME 6.8 FL (7.4-10.4); PLATELET COUNT 274 /CUMM (130-400); RBC DISTRIBUTION WIDTH 18.9 % (11.5-14.5); RED BLOOD CELL CT 3.02 /CUMM (4.20-5.40)
[2017-10-12 15:29] VITALS: BP 139/84
== END 2017-10-12 15:37 ==
LOC: ERH 05:35
PROVIDERS: Physician Assistant
DX: J44.9 Chronic obstructive pulmonary disease, unspecified (principal); Z87.891 Personal history of nicotine dependence; R51 Headache
CPT/HCPCS: 1263; 93005; 93010; J3101